=== PATIENT | male | born 1965 | race African-American/Black ===

== ENCOUNTER 2021-03-20 09:31 | Emergency (ER) | payer MEDICAID ==
[~2021-03-20] VITALS: Ht 180.3 cm; Wt 114.0 kg
[2021-03-20] MEDS ORDERED: HYDROCODONE/ACETAMINOPHEN 5/325MG TABLET PO ONE (10:30)
[2021-03-20] MEDS ORDERED: KETOROLAC 30MG/ML VIAL IM ONE (10:30)
[2021-03-20] MEDS ORDERED: NAPR-1176 MT (12:02)
[2021-03-20] MEDS ORDERED: HYDR-4001 MT (12:02)
[2021-03-20 12:24] VITALS: BP 135/85
== END 2021-03-20 12:17 | disposition home or self-care (01) ==
LOC: ER 09:31
DX: M48.061 Spinal stenosis, lumbar region without neurogenic claudication (principal); R03.0 Elevated blood-pressure reading, without diagnosis of hypertension
CPT/HCPCS: 72131; 96372; 99284; J1885